=== PATIENT | male | born 1990 | race African-American/Black ===

== ENCOUNTER 2017-03-28 02:20 | Emergency (ER) | payer SELFPAY ==
[~2017-03-28] VITALS: Ht 180.3 cm; Wt 83.9 kg
--- NOTE | 2017-03-28 02:34 | PHYS DOC ---
Past Medical History Past Medical History: No Pertinent History Past Surgical History: No Surgical History Alcohol Use: Occasionally Drug Use: None Adult General Chief Complaint Chief Complaint: FOOT INJURY PAIN HPI HPI Patient is a 26 year old male who presents with complaints of right foot pain and right ankle pain after stepping off a porch and twisted his foot inwards. Patient has no other injury, no other complaints. Review of Systems Review of Systems Constitutional: Denies fever or chills [] Eyes: Denies injury HENT: Denies injury Respiratory: Denies cough or shortness of breath [] Cardiovascular: No chest pain GI: Denies abdominal pain, Musculoskeletal: Right foot and ankle pain Integument: Denies rash or skin lesions [] Neurologic: Denies headache, focal weakness or sensory changes [] Current Medications Current Medications Current Medications Medications (Trade) Dose Ordered Sig/Paula Start Time Stop Time Status Last Admin Dose Admin Acetaminophen/ Codeine Phosphate (Tylenol #3) 1 tab 1X ONCE 03/28/17 03:30 03/28/17 03:31 Ibuprofen (Motrin) 400 mg 1X ONCE 03/28/17 03:30 03/28/17 03:31 Allergies Allergies Allergies Coded Allergies Type Severity Reaction Last Updated Verified No Known Drug Allergies 04/01/15 No Physical Exam Physical Exam Constitutional: Well developed, well nourished, no acute distress, non-toxic appearance. [] HENT: Normocephalic, atraumatic, Eyes: EOMI, conjunctiva normal, no discharge. [] Neck: Normal range of motion, no tenderness, trachea midline no stridor. [] Cardiovascular: Normal perfusion, normal pulses Lungs & Thorax: No tachypnea Abdomen: No distention Skin: Warm, dry, no erythema, no rash. No erythema, no ecchymosis Back: Normal range of motion Extremities: Mild swelling lateral aspect of the right ankle and right foot Neurologic: Alert and oriented X 3, normal motor function, no focal deficits noted. [] Psychologic: Affect normal, judgement normal, mood normal. [] EKG EKG [] Radiology/Procedures Radiology/Procedures No acute findings on foot or ankle x-ray[] Course & Med Decision Making Course & Med Decision Making Pertinent Labs and Imaging studies reviewed. (See chart for details) [] Dragon Disclaimer Dragon Disclaimer This electronic medical record was generated, in whole or in part, using a voice recognition dictation system. Departure Departure Impression: Primary Impression: Foot injury Additional Impression: Ankle injury Disposition: HOME, SELF-CARE Condition: STABLE Referrals: NO PCP (PCP) Please follow-up with your PCP or one of the clinics in the list provided to you for recheck and reevaluation in 3-5 days if the pain does not resolve Patient Instructions: Ankle Sprain, Cryotherapy, [id number], Foot Contusion, Heat Therapy Scripts Naproxen (NAPROXEN) 375 Mg Tablet 1 TAB PO TID for 7 Days, #21 TAB 5 Refills Prov: Gladys ROTH MD 03/28/17 Problem Qualifiers Gladys ROTH MD Mar 28, 2017 02:34
[2017-03-28 02:43] VITALS: BP 143/72
[2017-03-28] MEDS ORDERED: NAPR-695 PO (03:07)
[2017-03-28] MEDS: IBUPROFEN 400 MG TABLET. PO ONE (03:18)
[2017-03-28] MEDS: ACETAMINOPHEN/CODEINE 300/30MG TABLET. PO ONE (03:19)
--- NOTE | 2017-03-28 07:46 | RAD ---
Right ankle 3 views. History: Right ankle pain 3 views were taken of the right ankle. There is not evidence of an acute fracture or osseous abnormality. Impression: 1. Negative right ankle.
--- NOTE | 2017-03-28 07:53 | RAD ---
Right foot 3 views. History: Pain, injury 3 views were taken of the right foot. There is not evidence of an acute fracture or osseous abnormality. There is mild soft tissue swelling. Impression: 1. No fracture or acute osseous abnormality noted in the right foot.
== END 2017-03-28 03:44 | disposition home or self-care (01) ==
LOC: ER 02:20
DX: S99.911A Unspecified injury of right ankle, initial encounter (principal); S99.921A Unspecified injury of right foot, initial encounter; X58.XXXA Exposure to other specified factors, initial encounter; Y93.89 Activity, other specified; Y92.89 Other specified places as the place of occurrence of the external cause; Y99.8 Other external cause status
CPT/HCPCS: 73610; 73630; 99284

== ENCOUNTER 2020-11-27 12:47 | Emergency (ER) | payer SELFPAY ==
[~2020-11-27] VITALS: Ht 177.8 cm; Wt 95.5 kg
[~2020-11-27 12:47] MED LIST: NAPR-695 PO
[2020-11-27 13:17] VITALS: BP 137/86
[2020-11-27] MEDS ORDERED: NEOM10DR32 AD (13:26)
--- NOTE | 2020-11-27 13:26 | PHYS DOC ---
Past Medical History Past Medical History: No Pertinent History (MAURICE ELAINE APRN) Past Surgical History: Other Additional Past Surgical Histo: circumcision @ age 14 (MAURICE ELAINE APRN) Smoking Status: Current Every Day Smoker Alcohol Use: Occasionally Drug Use: None (MAURICE ELAINE APRN) General Adult EDM: Chief Complaint: UPPER EXTREMITY PAIN HPI: HPI: Patient is a 30 year old male who presents with muffled hearing in the right ear for the last 2 weeks. He is also had shoulder pain for the last 2 months and had an MRI on it and had an injection done and the MRI showed there is fluid on the shoulder. Patient states he has not followed up with an orthopedic on this. Patient denies fever, headache, nausea, vomiting, diarrhea, chest pain, dizziness, shortness of breath. He states in the past he thinks he injured that shoulder at work. Rates his pain about 8 out of 10 and it does not radiate but it is a constant ache. (MAURICE ELAINE APRN) Review of Systems: Review of Systems: Constitutional: Denies fever or chills. [] Eyes: Denies change in visual acuity. [] HENT: Denies nasal congestion or sore throat. + Muffled left ear hearing [] Respiratory: Denies cough or shortness of breath. [] Cardiovascular: Denies chest pain or edema. [] GI: Denies abdominal pain, nausea, vomiting, bloody stools or diarrhea. [] : Denies dysuria. [] Musculoskeletal: Denies back pain. + Chronic left shoulder joint pain. [] Integument: Denies rash. [] Neurologic: Denies headache, focal weakness or sensory changes. [] Endocrine: Denies polyuria or polydipsia. [] Lymphatic: Denies swollen glands. [] Psychiatric: Denies depression or anxiety. [] (MAURICE ELAINE PROTOCOL MANAGER) Heart Score: C/O Chest Pain: No Risk Factors: Risk Factors: DM, Current or recent (<one month) smoker, HTN, HLP, family history of CAD, obesity. Risk Scores: Score 0 - 3: 2.5% MACE over next 6 weeks - Discharge Home Score 4 - 6: 20.3% MACE over next 6 weeks - Admit for Clinical Observation Score 7 - 10: 72.7% MACE over next 6 weeks - Early Invasive Strategies (MAURICE ELAINE APRN) Allergies: Allergies: Allergies Coded Allergies Type Severity Reaction Last Updated Verified No Known Drug Allergies 04/01/15 No (MAURICE ELAINE APRN) Physical Exam: PE: Constitutional: Well developed, well nourished, no acute distress, non-toxic appearance. [] HENT: Normocephalic, atraumatic, bilateral external ears normal, oropharynx moist, no oral exudates, nose normal. Left otitis externa. Tympanic cannot be seen. [] Eyes: PERRLA, EOMI, conjunctiva normal, no discharge. [] Neck: Normal range of motion, no tenderness, supple, no stridor. [] Cardiovascular:Heart rate regular rhythm, no murmur [] Lungs & Thorax: Bilateral breath sounds clear to auscultation [] Abdomen: Bowel sounds normal, soft, no tenderness, no masses, no pulsatile masses. [] Skin: Warm, dry, no erythema, no rash. [] Back: No tenderness, no CVA tenderness. [] Extremities: No tenderness, no cyanosis, no clubbing, left shoulder ROM intact but limited, no edema. [] Neurologic: Alert and oriented X 3, normal motor function, normal sensory function, no focal deficits noted. [] Psychologic: Affect normal, judgement normal, mood normal. [] (MAURICE ELAINE APRN) EKG: EKG: [] (MAURICE ELAINE APRN) Radiology/Procedures: Radiology/Procedures: [] (MAURICE ELAINE APRN) Course & Med Decision Making: Course & Med Decision Making Pertinent Labs and Imaging studies reviewed. (See chart for details) See HPI. Alert and oriented x4. Ambulatory with a steady gait. Speaks in full clear sentences. Patient does have her range of motion of the left shoulder but is slightly limited due to pain. There is not a deformity. He denies any new injury or worsening of pain. He has not been taking any [id number]-[id number] medication to help his symptoms. Patient is educated to take Aleve or ibuprofen. I will refer him to an orthopedic doctor. He would also like a barrera ulder or an arm sling. Patient's right ear has otitis externa and I cannot see the eardrum due to the swelling. There is slight tenderness with examination. His only other history is a smoking. Afebrile. [] (MAURICE ELAINE APRN) Nicole Disclaimer: Nicole Disclaimer: This electronic medical record was generated, in whole or in part, using a voice recognition dictation system. (MAURICE ELAINE APRN) Departure Departure Impression: Primary Impression: Chronic shoulder pain Qualified Codes: M25.512 - Pain in left shoulder; G89.29 - Other chronic pain Additional Impression: Otitis externa Qualified Codes: H60.501 - Unspecified acute noninfective otitis externa, right ear Disposition: HOME / SELF CARE / HOMELESS Condition: STABLE Referrals: NO PCP (PCP) VERONICA JENSEN MD Patient Instructions: Otitis Externa, Shoulder Pain Additional Instructions: Call and get an appointment with orthopedics as soon as possible. Use Aleve or ibuprofen to help with your pain. Also try ice or heat. Use the eardrops as prescribed. Put earplugs or cotton ball in your ear to keep out water. Scripts Neomycin/Polymyxin B Sulf/Hc ([id number]-BQ EAR SUSP) 10 Ml Drops.susp 3 DROP AD TID for 5 Days, #10 ML 0 Refills Prov: MAURICE ELAINE APRN 11/27/20 Attending Signature I have participated in the care of this patient and I have reviewed and agree with all pertinent clinical information above including history, exam, and rec ommendations. (CASIMIRO FALK DO) MAURICE ELAINE APRN Nov 27, 2020 13:26 CASIMIRO FALK DO Nov 27, 2020 14:07
== END 2020-11-27 13:40 | disposition home or self-care (01) ==
LOC: ER 12:47
DX: G89.29 Other chronic pain (principal); M25.512 Pain in left shoulder; H60.501 Unspecified acute noninfective otitis externa, right ear; F17.200 Nicotine dependence, unspecified, uncomplicated
CPT/HCPCS: 99283

== ENCOUNTER 2020-12-16 09:32 | Emergency (ER) | payer SELFPAY ==
[~2020-12-16] VITALS: Ht 175.3 cm; Wt 92.7 kg
[~2020-12-16 09:32] MED LIST changes: +NEOM10DR32 AD
[2020-12-16 09:59] VITALS: BP 157/90
--- NOTE | 2020-12-16 10:16 | ED.ADGEN ---
Past Medical History Past Medical History: No Pertinent History Past Surgical History: Other Additional Past Surgical Histo: circumcision @ age 14 Smoking Status: Current Every Day Smoker Additional Information: 0.25 PPD Alcohol Use: None Drug Use: None General Adult EDM: Chief Complaint: ABDOMINAL PAIN HPI: HPI: Patient is a 30-year-old previously healthy male who presents to the emergency room with abdominal symptoms. Patient states that last night he ate a burrito and shortly thereafter had some mild lower abdominal pain followed by vomiting. Patient states he only gets the pain right before he vomits. He denies any current pain. He states that he has had 2 episodes of vomiting this morning along with some diarrhea. He denies any fevers or chills. He states he was able to eat breakfast this morning. Patient states the main reason he is here is because his boss told him he needed a work note to miss work and to be able to return to work. Patient is in a hurry to get out of here as quickly as possible. Review of Systems: Review of Systems: Complete ROS is negative unless otherwise documented in HPI Allergies: Allergies: Allergies Coded Allergies Type Severity Reaction Last Updated Verified No Known Drug Allergies 04/01/15 No Physical Exam: PE: General: Awake, alert, NAD. Well Nourished, well hydrated. Cooperative HEENT: Atraumatic, EOMI, PERRL, airway patent, moist oral mucosa Neck: Supple, trachea midline Respiratory: CTA bilaterally, normal effort, no wheezing/crackles CV: RRR, no murmur, cap refill <2 GI: Soft, nondistended, nontender, no masses MSK: No obvious deformities Skin: Warm, dry, intact Neuro: A&O x3, speech NL, sensory and motor grossly intact, no focal deficits Psych: Normal affect, normal mood, not suicidal or homicidal Current Patient Data: Labs: Laboratory Tests Test 12/16/20 09:50 Sodium Level 144 mmol/L (136-145) Potassium Level 3.7 mmol/L (3.5-5.1) Chloride Level 106 mmol/L (98-107) Carbon Dioxide Level 30 mmol/L (21-32) Anion Gap 8 (6-14) Blood Urea Nitrogen 8 mg/dL (8-26) Creatinine 1.0 mg/dL (0.7-1.3) Estimated GFR (Cockcroft-Gault) 106.9 BUN/Creatinine Ratio 8 (6-20) Glucose Level 94 mg/dL (70-99) Calcium Level 8.7 mg/dL (8.5-10.1) Total Bilirubin 0.3 mg/dL (0.2-1.0) Aspartate Amino Transferase (AST) 16 U/L (15-37) Alanine Aminotransferase (ALT) 24 U/L (16-63) Alkaline Phosphatase 73 U/L (46-116) Total Protein 7.6 g/dL (6.4-8.2) Albumin 4.1 g/dL (3.4-5.0) Albumin/Globulin Ratio 1.2 (1.0-1.7) Laboratory Tests 12/16/20 09:50 Vital Signs: Vital Signs Date Time Temp Pulse Resp B/P (MAP) Pulse Ox O2 Delivery O2 Flow Rate FiO2 12/16/20 09:59 79 20 157/90 (112) 98 Room Air 12/16/20 09:41 98.6 98.6 EKG: EKG: [] Heart Score: C/O Chest Pain: N/A Risk Factors: Risk Factors: DM, Current or recent (<one month) smoker, HTN, HLP, family history of CAD, obesity. Risk Scores: Score 0 - 3: 2.5% MACE over next 6 weeks - Discharge Home Score 4 - 6: 20.3% MACE over next 6 weeks - Admit for Clinical Observation Score 7 - 10: 72.7% MACE over next 6 weeks - Early Invasive Strategies Radiology/Procedures: Radiology/Procedures: [] Course & Med Decision Making: Course & Med Decision Making Pertinent Labs and Imaging studies reviewed. (See chart for details) Patient is a 30-year-old male who presents to the emergency room after having abdominal symptoms. Upon arrival to the emergency room patient is stable with normal vitals. His abdomen is soft and nontender. Patient's main reason for being here is to get a work note. He does not want extensive work-up. Did do a CMP to ensure his liver enzymes and kidney function is normal. CMP is normal. Patient will be discharged home will return if his symptoms worsen. Patient's test results and vitals while in the ED were fully reviewed and discussed with the patient. Patient is stable and at this time does not need admission to the hospital. We have discussed strict return precautions and the importance of following up with their Primary Care Physician. Patient stated understanding and was given an opportunity to ask any questions. Patient is in agreement with plan. Dragon Disclaimer: Dragon Disclaimer: This electronic medical record was generated, in whole or in part, using a voice recognition dictation system. Departure Departure Impression: Primary Impression: Abdominal pain Disposition: HOME / SELF CARE / HOMELESS Condition: STABLE Referrals: NO PCP (PCP) Patient Instructions: Abdominal Pain, Form - Excuse from Work, School, or Physical Activity GAVIOTA MCKEON MD Dec 16, 2020 10:16
[2020-12-16 10:46] LABS: CALCIUM 8.7 mg/dL (8.5-10.1); GFR 106.9; POTASSIUM 3.7 mmol/L (3.5-5.1)
[2020-12-16 10:51] LABS: ALBUMIN 4.1 g/dL (3.4-5.0); ALBUMIN/GLOBULIN RATIO 1.2 (1.0-1.7); TOTAL BILIRUBIN 0.3 mg/dL (0.2-1.0); TOTAL PROTEIN 7.6 g/dL (6.4-8.2)
== END 2020-12-16 10:24 | disposition home or self-care (01) ==
LOC: ER 09:32
DX: R10.31 Right lower quadrant pain (principal); R11.10 Vomiting, unspecified; F17.200 Nicotine dependence, unspecified, uncomplicated
CPT/HCPCS: 36415; 80053; 99283